=== PATIENT | female | born 1955 | race Caucasian/White ===

== ENCOUNTER → 2025-03-02 | Outpatient (CLI) | payer MEDICARE, OTHER ==
[2025-03-02 17:23] LABS: U Amphetamine Screen Not Detected; U Barbituate Screen Not Detected; U Benzodiazapine Screen DETECTED; U Buprenorphine Screen Not Detected; U Cannabinoids Screen Not Detected; U Cocaine Screen Not Detected; U Methadone Screen Not Detected; U Methamphetamine Screen Not Detected; U Opiates Screen DETECTED; U Oxycodone Screen Not Detected; U Phencyclidine Screen Not Detected
[2025-03-06 20:23] LABS: 6-ACETYLMORPHINE, URN, QUANT <10 ng/mL; CODEINE, URN, QUANT <20 ng/mL; HYDROCODONE, URN, QUANT 839 ng/mL; HYDROMORPHONE, URN, QUANT <20 ng/mL; MORPHINE, URN, QUANT <20 ng/mL; NORHYDROCODONE, URN, QUANT 859 ng/mL; NOROXYCODONE, URN, QUANT <20 ng/mL; NOROXYMORPHONE, URN, QUANT <20 ng/mL; OXYCODONE, URN, QUANT <20 ng/mL; OXYMORPHONE, URN, QUANT <20 ng/mL
[2025-03-07 15:36] LABS: 7-AMINOCLONAZEPAM, URN, QUANT <5 ng/mL; A-HYDROXYALPRAZOLAM, URN, QNT <5 ng/mL; A-HYDROXYMIDAZOLAM, URN, QNT <20 ng/mL; ALPRAZOLAM, URN, QUANT <5 ng/mL; CHLORDIAZEPOXIDE, URN, QUANT <20 ng/mL; CLONAZEPAM, URN, QUANT <5 ng/mL; DIAZEPAM, URN, QUANT <20 ng/mL; LORAZEPAM, URN, QUANT <20 ng/mL; MIDAZOLAM, URN, QUANT <20 ng/mL; NORDIAZEPAM, URN, QUANT <20 ng/mL; OXAZEPAM, URN, QUANT <20 ng/mL; TEMAZEPAM, URN, QUANT <20 ng/mL
== END | disposition home or self-care (01) ==
LOC: LAB SHORT 15:50 → LAB 15:50
PROVIDERS: Nurse Practitioner Family
DX: Z51.81 Encounter for therapeutic drug level monitoring (principal); Z79.899 Other long term (current) drug therapy
CPT/HCPCS: G0480; G0481

== ENCOUNTER 2025-03-25 11:16 | Observation (INO) | payer MEDICARE, OTHER ==
[~2025-03-25] VITALS: Ht 165.1 cm; Wt 79.4 kg
[2025-03-25 12:05] LABS: BASOPHILS ABSOLUTE AUTO 0.05 K/mm3 (0.00-0.23); BASOPHILS PERCENT AUTO 0 % (0-2); EOSINOPHILS ABSOLUTE AUTO 0.00 K/mm3 (0.00-0.68); EOSINOPHILS PERCENT AUTO 0 % (0-6); Hematocrit 42.1 % (33.0-51.0); Hemoglobin 14.2 g/dL (11.5-16.0); IMMATURE GRAN ABSOLUTE AUTO 0.06 K/mm3 (0.00-0.10); IMMATURE GRAN PERCENT AUTO 0 % (0-1); LYMPHOCYTES ABSOLUTE AUTO 0.40 K/mm3 (0.84-5.20); LYMPHOCYTES PERCENT AUTO 3 % (21-46); MONOCYTES ABSOLUTE AUTO 0.74 K/mm3 (0.16-1.47); MONOCYTES PERCENT AUTO 5 % (4-13); Mean Corpuscular HGB Conc 33.7 g/dL (31.5-36.5); Mean Corpuscular Volume 95 fL (80-100); NEUTROPHILS ABSOLUTE AUTO 12.54 K/mm3 (1.96-9.15); NEUTROPHILS PERCENT AUTO 91 % (41-73); NRBC ABSOLUTE 0.00 K/mm3 (0.00-0.02); NRBC Auto 0.0 /100 WBC (0.0-0.2); Platelet Count 242 K/mm3 (150-400); RDW Coefficient Variation 14.0 % (11.7-14.2); RDW Standard Deviation 49.0 fL (35.1-46.3)
[2025-03-25 12:35] LABS: Alanine Aminotransfer (ALT/SGP 21.0 U/L (12-78); Albumin, Blood 3.1 g/dL (3.4-5.0); Albumin/Globulin Ratio 0.8 (0.8-1.8); Anion Gap 11.0 mmol/L (3-11); Aspartate Aminotrans (AST/SGOT 31.0 U/L (12-37); Bilirubin, Total 1.0 mg/dL (0.1-1.0); Blood Urea Nitrogen 14.0 mg/dL (8-24); CO2, Blood 21.0 mmol/L (21-32); Calcium, Blood 8.7 mg/dL (8.5-10.1); Chloride, Blood 106.0 mmol/L (98-108); Creatinine, Blood 0.91 mg/dL (0.40-1.00); Globulin, Blood 3.8 g/dL (2.2-4.0); Glucose, Blood 136.0 mg/dL (70-99); Potassium, Blood 4.3 mmol/L (3.5-5.5); Sodium, Blood 134.0 mmol/L (136-145); Total Protein, Blood 6.9 g/dL (6.4-8.2)
[2025-03-25] MEDS ORDERED: ELIQUIS5 M3 PO (13:54)
[2025-03-25] MEDS ORDERED: Prozac40 MG PO (13:54)
[2025-03-25] MEDS ORDERED: HYDROCODONE-AC1 EAC7 PO (13:54)
[2025-03-25] MEDS ORDERED: LISI20 PO (13:55)
[2025-03-25] MEDS ORDERED: DILTIAZEM 24HR120 M3 PO (13:55)
[2025-03-25] MEDS ORDERED: ESTRADIOL1 M1 PO (13:55)
[2025-03-25] MEDS ORDERED: OMEP20ER PO (13:55)
[2025-03-25] MEDS ORDERED: CARVEDILOL25 M9 PO (13:55)
[2025-03-25] MEDS ORDERED: FUROSEMIDE20 MG PO (13:55)
[2025-03-25] MEDS ORDERED: K-Dur10 MEQ (13:56)
[2025-03-25] MEDS ORDERED: CefTRIAXone Sodium 1,000 MG in NS 100 ML IV SCH (15:30)
[2025-03-25] MEDS ORDERED: JARDIANCE10 MG PO (16:10)
[2025-03-25] MEDS ORDERED: Prochlorperazine Edisylate 10 mg Vial IV ONE (16:15)
[2025-03-25] MEDS ORDERED: HYDROcodone 10-APAP 325 TAB PO PRN (16:30)
[2025-03-25] MEDS ORDERED: Prochlorperazine Edisylate 10 mg Vial IV PRN (16:35)
[2025-03-25] MEDS ORDERED: Ipratropium/Albuterol SulF 2.5-0.5MG/3 ML Amp INH PRN (16:35)
[2025-03-25] MEDS ORDERED: Ondansetron HCl 2 MG / ML 2ML Vial IV ONE (17:20)
[2025-03-25 20:40] VITALS: BP 147/100
[2025-03-26 00:28] VITALS: BP 135/95
[2025-03-26 03:15] LABS: BASOPHILS ABSOLUTE AUTO 0.02 K/mm3 (0.00-0.23); BASOPHILS PERCENT AUTO 0 % (0-2); EOSINOPHILS ABSOLUTE AUTO 0.06 K/mm3 (0.00-0.68); EOSINOPHILS PERCENT AUTO 1 % (0-6); Hematocrit 38.2 % (33.0-51.0); Hemoglobin 12.4 g/dL (11.5-16.0); IMMATURE GRAN ABSOLUTE AUTO 0.03 K/mm3 (0.00-0.10); IMMATURE GRAN PERCENT AUTO 0 % (0-1); LYMPHOCYTES ABSOLUTE AUTO 0.89 K/mm3 (0.84-5.20); LYMPHOCYTES PERCENT AUTO 10 % (21-46); MONOCYTES ABSOLUTE AUTO 0.90 K/mm3 (0.16-1.47); MONOCYTES PERCENT AUTO 10 % (4-13); Mean Corpuscular HGB Conc 32.5 g/dL (31.5-36.5); Mean Corpuscular Volume 95 fL (80-100); NEUTROPHILS ABSOLUTE AUTO 7.37 K/mm3 (1.96-9.15); NEUTROPHILS PERCENT AUTO 80 % (41-73); NRBC ABSOLUTE 0.00 K/mm3 (0.00-0.02); NRBC Auto 0.0 /100 WBC (0.0-0.2); Platelet Count 195 K/mm3 (150-400); RDW Coefficient Variation 15.1 % (11.7-14.2); RDW Standard Deviation 52.5 fL (35.1-46.3)
--- NOTE | 2025-03-26 04:04 | NUR ---
PATIENT ADMITTED DURING SHIFT FOR ELEVATED TROP. PATIENT ALERT AND ORIENTED X4, ABLE TO MAKE NEEDS KNOWN. MED REC COMPLETED. PATIENT IS UP TO BATHROOM WITH SBA. PATIENT IS ON ROOM AIR SATING >92%. PATIENT HAS TELE IN PLACE-RUNNING NSR. PATIENT SKIN IS INTACT, SCATTERED BRUISING T/O. TROP CAME BACK ELEVATED AT 411- MD NOTIFIED. NO COMPLAINTS OF CHEST PAIN. BED IS IN LOW POSITION WITH WHEELS LOCKED. CALL LIGHTWITHIN REACH
[2025-03-26 04:27] VITALS: BP 147/100
[2025-03-26 06:11] LABS: Anion Gap 11.0 mmol/L (3-11); Blood Urea Nitrogen 11.0 mg/dL (8-24); CO2, Blood 25.0 mmol/L (21-32); Calcium, Blood 8.3 mg/dL (8.5-10.1); Chloride, Blood 103.0 mmol/L (98-108); Creatinine, Blood 0.91 mg/dL (0.40-1.00); Glucose, Blood 102.0 mg/dL (70-99); Potassium, Blood 3.8 mmol/L (3.5-5.5); Sodium, Blood 135.0 mmol/L (136-145)
[2025-03-26 07:35] VITALS: BP 167/121
[2025-03-26] MEDS ORDERED: NS 250 ML IV PRN (08:45)
[2025-03-26] MEDS ORDERED: DOXY100 PO (11:22)
[2025-03-26] MEDS ORDERED: CEFP200 PO (11:22)
[2025-03-26] MEDS ORDERED: VISBIOME 112.51 EACH PO (11:23)
[2025-03-26 11:44] VITALS: BP 143/97
[2025-03-26] MEDS ORDERED: CefTRIAXone Sodium 1,000 MG in NS 100 ML IV SCH (18:00)
[2025-03-27] MEDS ORDERED: Potassium Chloride 10 Meq Tablet SA PO SCH (09:00)
== END 2025-03-26 12:29 | disposition home or self-care (01) ==
LOC: ER 11:16 → MEDS 11:17 → ER 20:20 → MEDS 20:53
PROVIDERS: Emergency Medicine; ADMIT Internal Medicine
DX: R79.89 Other specified abnormal findings of blood chemistry (principal); J18.9 Pneumonia, unspecified organism; J44.9 Chronic obstructive pulmonary disease, unspecified; I48.20 Chronic atrial fibrillation, unspecified; I48.0 Paroxysmal atrial fibrillation; I11.0 Hypertensive heart disease with heart failure; I50.32 Chronic diastolic (congestive) heart failure; K21.9 Gastro-esophageal reflux disease without esophagitis; F41.9 Anxiety disorder, unspecified; M19.90 Unspecified osteoarthritis, unspecified site; F32.A Depression, unspecified; F11.20 Opioid dependence, uncomplicated; Z87.891 Personal history of nicotine dependence; Z79.01 Long term (current) use of anticoagulants; Z79.84 Long term (current) use of oral hypoglycemic drugs; Z79.899 Other long term (current) drug therapy
CPT/HCPCS: 36415; 71046; 80048; 80053; 83880; 84145; 84484; 85025; 93005; 93010; 94760; 96365; 96366; 96368; 96375; 99285-25; A9270; G0378; J0456; J0696; J0780; J2405; J7050

== ENCOUNTER → 2025-04-03 | Outpatient (CLI) | payer MEDICARE, OTHER ==
[~2025-04-03] MED LIST: CARVEDILOL25 M9 PO; CEFP200 PO; DILTIAZEM 24HR120 M3 PO; DOXY100 PO; ELIQUIS5 M3 PO; ESTRADIOL1 M1 PO; FUROSEMIDE20 MG PO; HYDROCODONE-AC1 EAC7 PO; JARDIANCE10 MG PO; K-Dur10 MEQ; LISI20 PO; OMEP20ER PO; Prozac40 MG PO; VISBIOME 112.51 EACH PO
[2025-04-03 13:49] LABS: BASOPHILS ABSOLUTE AUTO 0.03 K/mm3 (0.00-0.23); BASOPHILS PERCENT AUTO 1 % (0-2); EOSINOPHILS ABSOLUTE AUTO 0.20 K/mm3 (0.00-0.68); EOSINOPHILS PERCENT AUTO 5 % (0-6); Hematocrit 39.8 % (33.0-51.0); Hemoglobin 12.6 g/dL (11.5-16.0); IMMATURE GRAN ABSOLUTE AUTO 0.03 K/mm3 (0.00-0.10); IMMATURE GRAN PERCENT AUTO 1 % (0-1); LYMPHOCYTES ABSOLUTE AUTO 0.54 K/mm3 (0.84-5.20); LYMPHOCYTES PERCENT AUTO 13 % (21-46); MONOCYTES ABSOLUTE AUTO 0.44 K/mm3 (0.16-1.47); MONOCYTES PERCENT AUTO 10 % (4-13); Mean Corpuscular HGB Conc 31.7 g/dL (31.5-36.5); Mean Corpuscular Volume 97 fL (80-100); NEUTROPHILS ABSOLUTE AUTO 3.02 K/mm3 (1.96-9.15); NEUTROPHILS PERCENT AUTO 71 % (41-73); NRBC ABSOLUTE 0.00 K/mm3 (0.00-0.02); NRBC Auto 0.0 /100 WBC (0.0-0.2); Platelet Count 295 K/mm3 (150-400); RDW Coefficient Variation 13.9 % (11.7-14.2); RDW Standard Deviation 49.2 fL (35.1-46.3)
[2025-04-03 14:58] LABS: Alanine Aminotransfer (ALT/SGP 21.0 U/L (12-78); Albumin, Blood 3.1 g/dL (3.4-5.0); Albumin/Globulin Ratio 0.9 (0.8-1.8); Anion Gap 9.0 mmol/L (3-11); Aspartate Aminotrans (AST/SGOT 23.0 U/L (12-37); Bilirubin, Total 0.7 mg/dL (0.1-1.0); Blood Urea Nitrogen 11.0 mg/dL (8-24); CO2, Blood 24.0 mmol/L (21-32); Calcium, Blood 8.0 mg/dL (8.5-10.1); Chloride, Blood 105.0 mmol/L (98-108); Creatinine, Blood 0.89 mg/dL (0.40-1.00); Globulin, Blood 3.4 g/dL (2.2-4.0); Glucose, Blood 101.0 mg/dL (70-99); Potassium, Blood 4.0 mmol/L (3.5-5.5); Sodium, Blood 134.0 mmol/L (136-145); Total Protein, Blood 6.5 g/dL (6.4-8.2)
== END ==
LOC: LAB SHORT 12:35 → LAB 12:35
PROVIDERS: Nurse Practitioner Family
DX: R79.89 Other specified abnormal findings of blood chemistry (principal); Z79.899 Other long term (current) drug therapy
CPT/HCPCS: 80053; 83880; 85025